=== PATIENT | female | born 1995 | race African-American/Black ===

== ENCOUNTER 2017-03-13 15:54 | Inpatient (IN) | payer OTHER ==
[~2017-03-13] VITALS: Ht 170.2 cm; Wt 78.9 kg
[2017-03-13 16:00] VITALS: BP 130/61
--- NOTE | 2017-03-13 16:20 | Emergency Room Report ---
History of Present Illness General Chief Complaint: Overdose Source: Patient, EMS Present Illness HPI 21YOF BIBEMS for ?accidental OD on Abilify. Took 4x 15mg because "I was very anxious about school, and a lot of things." Denies SI. States ?past history of SI but "I got past that." Denies HI, AVH. Abilify for anxiety/depression. Denies schizophrenia, bipolar, other psych Dx Denies PMHX Denies chest pain, SOB, abd pain, headache, fever/chills Allergies: Coded Allergies: No Known Allergies (Unverified , 03/13/17) Patient History Past Medical History: psych hx Past Surgical History: none Pertinent Family History: none Social History: Denies: smoking, alcohol use, drug use Last Menstrual Period: 02/20/17 Now: No Immunizations: UTD Reviewed Nursing Documentation: PMH: Agreed, PSxH: Agreed Nursing Documentation-PMH Past Medical History: No History, Except For History Of Psychiatric Problem: Yes Review of Systems All Other Systems: negative except mentioned in HPI Physical Exam Vital Signs Date Time Temp Pulse Resp B/P (MAP) Pulse Ox O2 Delivery O2 Flow Rate FiO2 03/13/17 15:49 98.8 71 16 153/80 100 Room Air Sp02 EP Interpretation: reviewed, normal General Appearance: normal inspection, well appearing, no apparent distress, alert, GCS 15, non-toxic Head: normocephalic, atraumatic Eyes: bilateral eye PERRL, bilateral eye EOMI ENT: normal ENT inspection, hearing grossly normal, normal voice Neck: normal inspection, full range of motion, supple, no bony tend Respiratory: normal inspection, lungs clear, normal breath sounds, no respiratory distress, no retraction, no wheezing Cardiovascular #1: regular rate, rhythm, no edema Gastrointestinal: normal inspection, normal bowel sounds, non tender, soft, no guarding, no hernia Genitourinary: no CVA tenderness Musculoskeletal: normal inspection, back normal, normal range of motion, Kristina' s Sign negative Neurologic: normal inspection, alert, oriented x3, responsive, tire groover III-XII nml as tested, motor strength/tone normal, speech normal Psychiatric: normal inspection, judgement/insight normal, mood/affect normal, no suicidal/homicidal ideation, no delusions, other - flat affect Skin: normal inspection, normal color, no rash Medical Decision Making Diagnostic Impression: Primary Impression: Overdose of antidepressant Qualified Codes: T43.201A - Poisoning by unspecified antidepressants, accidental (unintentional), initial encounter Additional Impression: Anxiety ER Course Accidental OD on 4x abilify 15mg VSS. Afebrile Denies SI, HI Labs: No leuks. H&h stable. Mild KAREEN. Utox negative. Urine preg negative spoke to [facility] poison control, [place] Stated likely to see tachycardia, hypotension with 4x abilify, plus ?stupor/coma Recommended charcoal if ingestion within 1 hour, however patient took 3 hours prior Poison Control recommended Observe for [address] Floyd for med/surg admit at 620pm Dr Mercado consulted - will see patient in AM EKG Diagnostic Results Rate: normal Rhythm: NSR ST Segments: no acute changes ASA given to the pt in ED: No Rhythm Strip Diag. Results EP Interpretation: yes Rate: 62 Rhythm: NSR, no PVC's, no ectopy Last Vital Signs Date Time Temp Pulse Resp B/P (MAP) Pulse Ox O2 Delivery O2 Flow Rate FiO2 03/13/17 15:49 98.8 71 16 153/80 100 Room Air Status: improved Disposition: ADMITTED INPATIENT Condition: Serious ÁNGEL LOPEZ M.D. Mar 13, 2017 16:20
[2017-03-13 16:28] LABS: BASOPHILS % (AUTO) 1.2 % (0.0-2.0); EOSINOPHILS % (AUTO) 1.1 % (0.0-3.0); LYMPHOCYTES % (AUTO) 31.3 % (20.0-45.0); MEAN CORPUSCULAR HEMOGLOBIN 26.2 PG (27.0-31.0); MEAN CORPUSCULAR HGB CONC 32.7 G/DL (32.0-36.0); MEAN CORPUSCULAR VOLUME 80 FL (80-99); MEAN PLATELET VOLUME 7.8 FL (6.5-10.1); NEUTROPHILS % (AUTO) 57.4 % (45.0-75.0); PLATELET COUNT 193 K/UL (150-450); RED BLOOD COUNT 4.16 M/UL (4.20-5.40); RED CELL DISTRIBUTION WIDTH 13.7 % (11.6-14.8)
[2017-03-13] MEDS ORDERED: Activated Charcoal 50gm/240ml Btl ORAL ONE (16:30)
[2017-03-13 16:47] LABS: ACETAMINOPHEN < 10 ug/mL (10-30); ALANINE AMINOTRANSFERASE 12 U/L (3-33); ALBUMIN/GLOBULIN RATIO 0.8 (1.0-2.7); ALCOHOL < 10 mg/dL; ANION GAP 11 (5-15); ASPARTATE AMINO TRANSFERASE 19 U/L (5-40); CALCIUM 8.9 mg/dL (8.6-10.2); CARBON DIOXIDE 20 mEQ/L (20-30); CHLORIDE 104 mEQ/L (98-107); GLOMERULAR FILTRATION RATE > 60 mL/min (>60); HEMOLYSIS 38; POTASSIUM 3.8 mEQ/L (3.4-4.9); SODIUM 135 mEQ/L (135-145); TOTAL PROTEIN 7.7 g/dL (6.6-8.7)
[2017-03-13 17:00] VITALS: BP 114/61
[2017-03-13 18:00] VITALS: BP 111/72
[2017-03-13 19:25] VITALS: BP 132/78
[2017-03-13 20:00] VITALS: BP 123/73
[2017-03-13] MEDS ORDERED: ABILIFY15 MG ORAL (20:14)
[2017-03-13] MEDS ORDERED: Zolpidem 5mg tab ORAL PRN (22:00)
[2017-03-13] MEDS ORDERED: Mylanta II UD 30ml ORAL PRN (22:00)
[2017-03-13] MEDS ORDERED: Morphine Sulfate 2mg/ml Inj IVP PRN (22:00)
[2017-03-13] MEDS ORDERED: LORazepam Inj 2mg/ml 1ml IV PRN (22:00)
[2017-03-13] MEDS ORDERED: Miralax 17gm pkt ORAL PRN (22:00)
[2017-03-13] MEDS: D5 1/2NS 1,000 ML IV SCH (22:24)
[2017-03-14] VITALS: BP 116/64
[2017-03-14 04:00] VITALS: BP 121/70
[2017-03-14 07:27] LABS: BASOPHILS % (AUTO) 1.4 % (0.0-2.0); EOSINOPHILS % (AUTO) 1.2 % (0.0-3.0); LYMPHOCYTES % (AUTO) 29.7 % (20.0-45.0); MEAN CORPUSCULAR HEMOGLOBIN 24.9 PG (27.0-31.0); MEAN CORPUSCULAR VOLUME 83 FL (80-99); MEAN PLATELET VOLUME 10.4 FL (6.5-10.1); MONOCYTES % (AUTO) 7.6 % (1.0-10.0); NEUTROPHILS % (AUTO) 60.1 % (45.0-75.0); PLATELET COUNT 248 K/UL (150-450); RED BLOOD COUNT 4.74 M/UL (4.20-5.40); RED CELL DISTRIBUTION WIDTH 13.9 % (11.6-14.8); WHITE BLOOD COUNT 4.9 K/UL (4.8-10.8)
[2017-03-14 08:01] LABS: ALANINE AMINOTRANSFERASE 15 U/L (3-33); ALBUMIN/GLOBULIN RATIO 0.9 (1.0-2.7); ANION GAP 12 (5-15); ASPARTATE AMINO TRANSFERASE 20 U/L (5-40); CALCIUM 9.1 mg/dL (8.6-10.2); CARBON DIOXIDE 22 mEQ/L (20-30); CHLORIDE 108 mEQ/L (98-107); CHOLESTEROL 205 mg/dL (< 200); CHOLESTEROL/HDL RATIO 5.3 (3.3-4.4); CREATININE 1.1 mg/dL (0.5-0.9); GLOMERULAR FILTRATION RATE > 60 mL/min (>60); HEMOLYSIS 1; LDL CHOLESTEROL (CALC.) 151 mg/dL (60-99); POTASSIUM 4.3 mEQ/L (3.4-4.9); SODIUM 142 mEQ/L (135-145); TOTAL PROTEIN 8.2 g/dL (6.6-8.7)
[2017-03-14 08:02] LABS: THYROID STIMULATING HORMONE 0.997 uIU/mL (0.300-4.500)
[2017-03-14 08:24] VITALS: BP 116/76
--- NOTE | 2017-03-14 10:07 | Consultation ---
History of Present Illness General Chief Complaint: Overdose Present Illness HPI the pt is a 21 yo female with hx of anxiety and depression/ the pt took 4 pills of abilify to allevoiate anxiety. the pt stated that this was not a suicide attempt. the pt stated that she would like to go home her mother is on plane from to [place]. the pt is denying depressive sxs. she stated that she moved to [place] two days ago and she has a hard time adjusting. the pt has future oriented tp. the pt is passionate about becoming an actress. the pt has a psychiatrist in . the pt is looking for a psychiatrist here. the pt is currently at low risk for dts. the pt has good support system. Allergies: Coded Allergies: No Known Allergies (Unverified , 03/13/17) Medication History Scheduled Aripiprazole* (Abilify*), 15 MG ORAL DAILY, (Reported) Patient History History Provided By: Patient, PMD Healthcare decision maker Resuscitation status Advanced Directive on File Past Medical/Surgical History Past Medical/Surgical History: (1) Anxiety (2) Overdose of antidepressant Review of Systems Psychiatric: Reports: prior hx, anxiety Physical Exam General Appearance: no apparent distress, alert, thin Neurologic: alert, oriented x 3, responsive, normal mood/affect Last 24 Hour Vital Signs Date Time Temp Pulse Resp B/P (MAP) Pulse Ox O2 Delivery O2 Flow Rate FiO2 03/14/17 08:24 98.2 85 20 116/76 99 Room Air 03/14/17 04:00 97.9 75 20 121/70 97 Room Air 03/14/17 00:00 97.7 72 20 116/64 98 Room Air 03/13/17 20:17 98.1 73 18 132/78 100 Room Air 03/13/17 20:00 98.1 71 20 123/73 98 Room Air 03/13/17 19:25 98.1 73 18 132/78 100 Room Air 03/13/17 18:00 74 18 111/72 100 Room Air 03/13/17 17:00 64 18 114/61 100 Room Air 03/13/17 16:00 68 21 Room Air 03/13/17 16:00 98.1 68 21 130/61 100 Room Air 03/13/17 15:49 98.8 71 16 153/80 100 Room Air Intake and Output 03/14/17 03/15/17 19:00 07:00 Intake Total 360 ml Balance 360 ml Intake Oral 360 ml Laboratory Tests Test 03/13/17 16:06 03/13/17 16:13 03/14/17 06:55 White Blood Count 7.0 K/UL (4.8-10.8) 4.9 K/UL (4.8-10.8) Red Blood Count 4.16 M/UL (4.20-5.40) L 4.74 M/UL (4.20-5.40) Hemoglobin 10.9 G/DL (12.0-16.0) L 11.8 G/DL (12.0-16.0) L Hematocrit 33.3 % (37.0-47.0) L 39.4 % (37.0-47.0) Mean Corpuscular Volume 80 FL (80-99) 83 FL (80-99) Mean Corpuscular Hemoglobin 26.2 PG (27.0-31.0) L 24.9 PG (27.0-31.0) L Mean Corpuscular Hemoglobin Concent 32.7 G/DL (32.0-36.0) 30.0 G/DL (32.0-36.0) L Red Cell Distribution Width 13.7 % (11.6-14.8) 13.9 % (11.6-14.8) Platelet Count 193 K/UL (150-450) 248 K/UL (150-450) Mean Platelet Volume 7.8 FL (6.5-10.1) 10.4 FL (6.5-10.1) H Neutrophils (%) (Auto) 57.4 % (45.0-75.0) 60.1 % (45.0-75.0) Lymphocytes (%) (Auto) 31.3 % (20.0-45.0) 29.7 % (20.0-45.0) Monocytes (%) (Auto) 9.0 % (1.0-10.0) 7.6 % (1.0-10.0) Eosinophils (%) (Auto) 1.1 % (0.0-3.0) 1.2 % (0.0-3.0) Basophils (%) (Auto) 1.2 % (0.0-2.0) 1.4 % (0.0-2.0) Sodium Level 135 mEQ/L (135-145) 142 mEQ/L (135-145) Potassium Level 3.8 mEQ/L (3.4-4.9) 4.3 mEQ/L (3.4-4.9) Chloride Level 104 mEQ/L (98-107) 108 mEQ/L (98-107) H Carbon Dioxide Level 20 mEQ/L (20-30) 22 mEQ/L (20-30) Anion Gap 11 (5-15) 12 (5-15) Blood Urea Nitrogen 10 mg/dL (7-23) 7 mg/dL (7-23) Creatinine 1.0 mg/dL (0.5-0.9) H 1.1 mg/dL (0.5-0.9) H Estimat Glomerular Filtration Rate > 60 mL/min (>60) > 60 mL/min (>60) Glucose Level 88 mg/dL (74-106) 97 mg/dL (74-106) Calcium Level 8.9 mg/dL (8.6-10.2) 9.1 mg/dL (8.6-10.2) Total Bilirubin < 0.2 mg/dL (0.0-1.2) 0.3 mg/dL (0.0-1.2) Aspartate Amino Transf (AST/SGOT) 19 U/L (5-40) 20 U/L (5-40) Alanine Aminotransferase (ALT/SGPT) 12 U/L (3-33) 15 U/L (3-33) Alkaline Phosphatase 26 U/L (35-104) L 31 U/L (35-104) L Total Protein 7.7 g/dL (6.6-8.7) 8.2 g/dL (6.6-8.7) Albumin 3.6 g/dL (3.5-5.2) 3.9 g/dL (3.5-5.2) Globulin 4.1 g/dL 4.3 g/dL Albumin/Globulin Ratio 0.8 (1.0-2.7) L 0.9 (1.0-2.7) L Salicylates Level < 1 mg/dL (10-30) L Acetaminophen Level < 10 ug/mL (10-30) L Serum Alcohol < 10 mg/dL Urine HCG, Qualitative Negative Urine Opiates Screen Negative (NEGATIVE) Urine Barbiturates Screen Negative (NEGATIVE) Phencyclidine (PCP) Screen Negative (NEGATIVE) Urine Amphetamines Screen Negative (NEGATIVE) Urine Benzodiazepines Screen Negative (NEGATIVE) Urine Cocaine Screen Negative (NEGATIVE) Urine Marijuana (THC) Screen Negative (NEGATIVE) Triglycerides Level 75 mg/dL (< 150) Cholesterol Level 205 mg/dL (< 200) H LDL Cholesterol 151 mg/dL (60-99) H HDL Cholesterol 39 mg/dL (> 60) Cholesterol/HDL Ratio 5.3 (3.3-4.4) H Thyroid Stimulating Hormone (TSH) 0.997 uIU/mL (0.300-4.500) Height (Feet): 5 Height (Inches): 7.00 Weight (Pounds): 174 Medications Current Medications Medications (Trade) Dose Ordered Sig/Minoo Route PRN Reason Start Time Stop Time Status Last Admin Dose Admin Acetaminophen (Tylenol) 650 mg Q4H PRN ORAL fever 03/13/17 22:00 04/12/17 21:59 Al Hydroxide/Mg Hydroxide (Mylanta II) 30 ml Q6H PRN ORAL dyspepsia 03/13/17 22:00 04/12/17 21:59 Dextrose (Dextrose 50%) STAT PRN IV Hypoglycemia 03/13/17 22:00 04/12/17 21:59 Dextrose/Sodium Chloride 1,000 ml @ 75 mls/hr [id number] IV 03/13/17 21:00 04/12/17 20:59 03/13/17 22:24 Lorazepam (Ativan 2mg/ml 1ml) 0.5 mg Q4H PRN IV For Anxiety 03/13/17 22:00 03/20/17 21:59 03/13/17 22:24 Morphine Sulfate (Morphine Sulfate) 1 mg Q4H PRN IVP For Pain 03/13/17 22:00 03/20/17 21:59 Ondansetron HCl (Zofran) 4 mg Q6H PRN IVP Nausea & Vomiting 03/13/17 22:00 04/12/17 21:59 Polyethylene Glycol (Miralax) 17 gm HSPRN PRN ORAL Constipation 03/13/17 22:00 04/12/17 21:59 Zolpidem Tartrate (Ambien) 5 mg HSPRN PRN ORAL Insomnia 03/13/17 22:00 03/20/17 21:59 Assessment/Plan Status: doing well, stable Assessment/Plan Anxiety d/o -dc rich. -the pt will be discharged as she is not an imminent dts/dto Andrew Mercado M.D. Mar 14, 2017 10:07
[2017-03-14] MEDS: D5 1/2NS 1,000 ML IV SCH (10:21)
--- NOTE | 2017-03-14 11:23 | Consultation ---
History of Present Illness General Date patient seen: Mar 14, 2017 Time patient seen: 10:50 Chief Complaint: Overdose Referring physician: dr Floyd Reason for Consultation: inpatietn management Present Illness HPI 21y/old AA female with PMH of anxiety/depression, presented by ambulance for accidental OD on Abilify. 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 Denied HI, Abilify for anxiety/depression. Denied history of schizophrenia, bipolar, other psych disorders Denied chest pain, SOB, abd pain, headache, fever/chills VSS Laboratory workup stable except anemia was noted urine tox screen negative Salicylates, Tylenol levels negative ECG with NSR ED physician consulted poison control center Recommended charcoal if ingestion within 1 hour, however patient took 3 hours prior Poison Control recommended to observe for 8 hours Allergies: Coded Allergies: No Known Allergies (Unverified , 03/13/17) Medication History No Active Prescriptions or Reported Meds Patient History History Provided By: Patient Healthcare decision maker Resuscitation status Advanced Directive on File Past Medical/Surgical History Past Medical/Surgical History: (1) Anxiety Review of Systems Constitutional: Reports: no symptoms Eye: Reports: no symptoms ENT: Reports: no symptoms Respiratory: Reports: no symptoms Cardiovascular: Reports: no symptoms Gastrointestinal: Reports: no symptoms Genitourinary: Reports: no symptoms Musculoskeletal: Reports: no symptoms Skin: Reports: no symptoms Psychiatric: Reports: see HPI, anxiety Neurological: Reports: no symptoms Endocrine: Reports: no symptoms Hematologic/Lymphatic: Reports: no symptoms Physical Exam General Appearance: WD/WN, no apparent distress, alert - A/A/O x 4 Lines, tubes and drains: peripheral HEENT: normocephalic, atraumatic, anicteric, mucous membranes moist, PERRL Neck: non-tender, normal alignment, supple, normal inspection Respiratory/Chest: chest wall non-tender, lungs clear, normal breath sounds, no respiratory distress, no accessory muscle use Cardiovascular/Chest: normal peripheral pulses, normal rate, regular rhythm Abdomen: normal bowel sounds, non tender, soft Extremities: normal range of motion, non-tender, no calf tenderness, normal capillary refill Neurologic: radial arm saw operator II-XII grossly normal, no motor/sensory deficits, alert, oriented x 3, responsive, normal mood/affect Musculoskeletal: normal muscle bulk Last 24 Hour Vital Signs Date Time Temp Pulse Resp B/P (MAP) Pulse Ox O2 Delivery O2 Flow Rate FiO2 03/14/17 08:24 98.2 85 20 116/76 99 Room Air 03/14/17 04:00 97.9 75 20 121/70 97 Room Air 03/14/17 00:00 97.7 72 20 116/64 98 Room Air 03/13/17 20:17 98.1 73 18 132/78 100 Room Air 03/13/17 20:00 98.1 71 20 123/73 98 Room Air 03/13/17 19:25 98.1 73 18 132/78 100 Room Air 03/13/17 18:00 74 18 111/72 100 Room Air 03/13/17 17:00 64 18 114/61 100 Room Air 03/13/17 16:00 68 21 Room Air 03/13/17 16:00 98.1 68 21 130/61 100 Room Air 03/13/17 15:49 98.8 71 16 153/80 100 Room Air Intake and Output 03/14/17 03/15/17 19:00 07:00 Intake Total 360 ml Balance 360 ml Intake Oral 360 ml Laboratory Tests Test 03/13/17 16:06 03/13/17 16:13 03/14/17 06:55 White Blood Count 7.0 K/UL (4.8-10.8) 4.9 K/UL (4.8-10.8) Red Blood Count 4.16 M/UL (4.20-5.40) L 4.74 M/UL (4.20-5.40) Hemoglobin 10.9 G/DL (12.0-16.0) L 11.8 G/DL (12.0-16.0) L Hematocrit 33.3 % (37.0-47.0) L 39.4 % (37.0-47.0) Mean Corpuscular Volume 80 FL (80-99) 83 FL (80-99) Mean Corpuscular Hemoglobin 26.2 PG (27.0-31.0) L 24.9 PG (27.0-31.0) L Mean Corpuscular Hemoglobin Concent 32.7 G/DL (32.0-36.0) 30.0 G/DL (32.0-36.0) L Red Cell Distribution Width 13.7 % (11.6-14.8) 13.9 % (11.6-14.8) Platelet Count 193 K/UL (150-450) 248 K/UL (150-450) Mean Platelet Volume 7.8 FL (6.5-10.1) 10.4 FL (6.5-10.1) H Neutrophils (%) (Auto) 57.4 % (45.0-75.0) 60.1 % (45.0-75.0) Lymphocytes (%) (Auto) 31.3 % (20.0-45.0) 29.7 % (20.0-45.0) Monocytes (%) (Auto) 9.0 % (1.0-10.0) 7.6 % (1.0-10.0) Eosinophils (%) (Auto) 1.1 % (0.0-3.0) 1.2 % (0.0-3.0) Basophils (%) (Auto) 1.2 % (0.0-2.0) 1.4 % (0.0-2.0) Sodium Level 135 mEQ/L (135-145) 142 mEQ/L (135-145) Potassium Level 3.8 mEQ/L (3.4-4.9) 4.3 mEQ/L (3.4-4.9) Chloride Level 104 mEQ/L (98-107) 108 mEQ/L (98-107) H Carbon Dioxide Level 20 mEQ/L (20-30) 22 mEQ/L (20-30) Anion Gap 11 (5-15) 12 (5-15) Blood Urea Nitrogen 10 mg/dL (7-23) 7 mg/dL (7-23) Creatinine 1.0 mg/dL (0.5-0.9) H 1.1 mg/dL (0.5-0.9) H Estimat Glomerular Filtration Rate > 60 mL/min (>60) > 60 mL/min (>60) Glucose Level 88 mg/dL (74-106) 97 mg/dL (74-106) Calcium Level 8.9 mg/dL (8.6-10.2) 9.1 mg/dL (8.6-10.2) Total Bilirubin < 0.2 mg/dL (0.0-1.2) 0.3 mg/dL (0.0-1.2) Aspartate Amino Transf (AST/SGOT) 19 U/L (5-40) 20 U/L (5-40) Alanine Aminotransferase (ALT/SGPT) 12 U/L (3-33) 15 U/L (3-33) Alkaline Phosphatase 26 U/L (35-104) L 31 U/L (35-104) L Total Protein 7.7 g/dL (6.6-8.7) 8.2 g/dL (6.6-8.7) Albumin 3.6 g/dL (3.5-5.2) 3.9 g/dL (3.5-5.2) Globulin 4.1 g/dL 4.3 g/dL Albumin/Globulin Ratio 0.8 (1.0-2.7) L 0.9 (1.0-2.7) L Salicylates Level < 1 mg/dL (10-30) L Acetaminophen Level < 10 ug/mL (10-30) L Serum Alcohol < 10 mg/dL Urine HCG, Qualitative Negative Urine Opiates Screen Negative (NEGATIVE) Urine Barbiturates Screen Negative (NEGATIVE) Phencyclidine (PCP) Screen Negative (NEGATIVE) Urine Amphetamines Screen Negative (NEGATIVE) Urine Benzodiazepines Screen Negative (NEGATIVE) Urine Cocaine Screen Negative (NEGATIVE) Urine Marijuana (THC) Screen Negative (NEGATIVE) Triglycerides Level 75 mg/dL (< 150) Cholesterol Level 205 mg/dL (< 200) H LDL Cholesterol 151 mg/dL (60-99) H HDL Cholesterol 39 mg/dL (> 60) Cholesterol/HDL Ratio 5.3 (3.3-4.4) H Thyroid Stimulating Hormone (TSH) 0.997 uIU/mL (0.300-4.500) Height (Feet): 5 Height (Inches): 7.00 Weight (Pounds): 174 Medications Current Medications Medications (Trade) Dose Ordered Sig/Minoo Route PRN Reason Start Time Stop Time Status Last Admin Dose Admin Acetaminophen (Tylenol) 650 mg Q4H PRN ORAL fever 03/13/17 22:00 04/12/17 21:59 Al Hydroxide/Mg Hydroxide (Mylanta II) 30 ml Q6H PRN ORAL dyspepsia 03/13/17 22:00 04/12/17 21:59 Dextrose (Dextrose 50%) STAT PRN IV Hypoglycemia 03/13/17 22:00 04/12/17 21:59 Dextrose/Sodium Chloride 1,000 ml @ 75 mls/hr [id number] IV 03/13/17 21:00 04/12/17 20:59 03/14/17 10:21 Lorazepam (Ativan 2mg/ml 1ml) 0.5 mg Q4H PRN IV For Anxiety 03/13/17 22:00 03/20/17 21:59 03/13/17 22:24 Morphine Sulfate (Morphine Sulfate) 1 mg Q4H PRN IVP For Pain 03/13/17 22:00 03/20/17 21:59 Ondansetron HCl (Zofran) 4 mg Q6H PRN IVP Nausea & Vomiting 03/13/17 22:00 04/12/17 21:59 Polyethylene Glycol (Miralax) 17 gm HSPRN PRN ORAL Constipation 03/13/17 22:00 04/12/17 21:59 Zolpidem Tartrate (Ambien) 5 mg HSPRN PRN ORAL Insomnia 03/13/17 22:00 03/20/17 21:59 Assessment/Plan Assessment/Plan ASSESSMENT accidental overdose ( on Abilify) generalized anxiety disorder hyperlipidemia anemia PLAN OF CARE [facility] floor IVF mental status stable tox screen negative off Abilify psych seen and evaluated per psych- not in imminent danger to self or other psych cleared for dc dc Abilify lipid panel with elevated LDL add Fish oil and group counselor on therapeutic life style changes monitor HH, as outpatient dc plan as per PMD case discussed and evaluated by supervising physician Damion Bello)Dahlia NP Mar 14, 2017 11:23
[2017-03-14 12:07] VITALS: BP 133/80
[2017-03-14] MEDS ORDERED: D5 1/2NS 1000ml IV ONE (12:14)
--- NOTE | 2017-03-17 10:41 | Discharge Summary ---
Discharge Summary Hospital Course Date of Admission Mar 13, 2017 at 17:45 Date of Discharge Mar 14, 2017 at 12:15 Admitting Diagnosis OVERDOSE HPI Dorinda Acosta is a 21 year old female who was admitted on Mar 13, 2017 at 17:45 for Overdose Hospital Course dc summary #[id number] Discharge Medications Discontinued Medications: Aripiprazole* (Abilify*) 15 Mg Tablet 15 MG ORAL DAILY, TAB Discharge Condition Upon Discharge: stable Discharge Disposition Patient was discharged to Home () Discharge Diagnoses: Damion (Brucedayton),Dahlia TITUS Mar 17, 2017 10:41
--- NOTE | 2017-03-18 04:15 | Discharge Summary 2 SIG ---
DATE OF ADMISSION: 03/13/2017 DATE OF DISCHARGE: 03/14/2017 REASON FOR ADMISSION: 21-year-old female with history of anxiety and depression, took four pills of Abilify to alleviate her anxiety. The patient stated it was not a suicidal attempt. The patient stated that she recently came to [place] from [place]. 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 She reported being under a lot of stress and anxiety. In order to deal with stress, she took four Abilify pills. The patient denied any depressive symptoms. She never had a suicidal attempt in the past. She had a psychiatrist in [place], and currently was looking for a local psychiatrist . No history of schizophrenia, bipolar, or other psychiatric disorder. She denied chest pain, shortness of breath, abdominal pain, headache, fever, or chills. Vital signs were stable. Laboratory workup was stable except anemia was noted. Urine toxicology screen was negative. Salicylate and Tylenol levels were negative. EKG revealed normal sinus rhythm. Emergency department physician consulted Poison Control Center who recommended charcoal if ingestion occurred within one hour. However, the patient took pills three hours ago. Poison Control recommended to observe for eight hours. The patient was admitted. ADMITTING DIAGNOSES: 1. Accidental overdose on Abilify. 2. Generalized anxiety disorder. 3. Anemia HOSPITAL COURSE: The patient was admitted to medical/surgical floor. The patient was started on IV fluids. Mental status was stable. As mentioned above, toxicology screen was negative. The patient was off Abilify. Psychiatrist seen and evaluated the patient. Per psychiatrist, the patient was not an imminent danger to self or others. Psychiatrist cleared the patient for discharge and recommended to discontinue Abilify ( was already hold in the hospital, and not to be resumed upon discharge). Lipid panel with elevated LDL, recommended fish oil over the counter , and the patietn was counseled on therapeutic lifestyle changes. Monitor hemoglobin and hematocrit as an outpatient. The patient was stable for discharge. Due to the rapid and unexpected improvement in the patient's condition, the patient was discharged in one day. DISCHARGE DIAGNOSES: 1. Accidental overdose (on Abilify). 2. Generalized anxiety disorder. 3. Hyperlipidemia. 4. Anemia. DISCHARGE MEDICATIONS: See medication reconciliation. DISCHARGE INSTRUCTIONS: The patient was discharged home. FOLLOWUP: Follow up with primary care provider. Rafa Floyd M.D. Dahlia RicciNataliya guajardo DR: Monse JOB#: [id number] CC: GABRIEL
== END 2017-03-14 12:15 | disposition home or self-care (01) | DRG 918 ==
LOC: EDBD 15:54 → EMR 17:40 → 4W 17:45 → EDBEDREQ 19:49 → 4W 03-14 05:55
DX: T43.591A Poisoning by other antipsychotics and neuroleptics, accidental (unintentional), initial encounter (principal); F32.9 Major depressive disorder, single episode, unspecified; D64.9 Anemia, unspecified; E78.5 Hyperlipidemia, unspecified; F41.1 Generalized anxiety disorder; Y92.89 Other specified places as the place of occurrence of the external cause
CPT/HCPCS: 36415; 80053; 80061; 80300; 80329; 81025; 84443; 85025; 93005; 99285